=== PATIENT | male | born 1985 | race Caucasian/White ===

== ENCOUNTER 2024-12-15 09:02 | Outpatient (CLI) | payer BC | END 2024-12-15 09:03 | disposition home or self-care (01) | LOC: CSHSLEEP 09:02 | PROVIDERS: ATTEND Family Medicine | DX: G47.33 Obstructive sleep apnea (adult) (pediatric) (principal); G47.10 Hypersomnia, unspecified; F41.9 Anxiety disorder, unspecified; E11.9 Type 2 diabetes mellitus without complications; E66.9 Obesity, unspecified; Z68.44 Body mass index [BMI] 60.0-69.9, adult; R06.83 Snoring | CPT/HCPCS: 95811 ==